=== PATIENT | female | born 1950 | race Caucasian/White ===

== ENCOUNTER 2019-08-24 08:56 | Outpatient (CLI) | payer MEDICARE ==
--- NOTE | 2019-08-24 10:34 | RAD ---
XR Lumbar Spine Bending Min 4V History: Pain. M [age] Comparison: MRI same day Findings: No acute fracture or malalignment. Advanced degenerative disc space height loss at L3/L4 an d L4/L5. Mild narrowing at the L5/S1. 1-2 mm L1 over L2 and L2 over L3 retrolisthesis due to posterior degenerative disc space height loss. No significant translation with flexion or extension. Impression: No significant translation with flexion or extension.
--- NOTE | 2019-08-24 10:39 | RAD ---
XR Cervical Spine 4 View Min History: M [age] radiculopathy Comparison: None. Findings: Bones are demineralized. Advanced degenerative disc space disease C4/C5, C5/C6, and C6/C7. With flexion there is 4 mm C3 over C4 anterolisthesis which is not present in the neutral position and normalizes with extension. There is apparent fusion of the spinous processes C6 and C7. Impression: Abnormal translation at C3/C4.
--- NOTE | 2019-08-24 12:03 | MRI ---
MRI LUMBAR SPINE WITHOUT CONTRAST: Date: 08/24/19 INDICATION: Low back pain. No comparison. FINDINGS: The lumbar vertebra maintain height and alignment. Degenerative disc changes are seen throughout, mos t prominent at L3-4 and L4-5 levels. Degenerative disc and end plate changes at these levels are note d and there is loss of disc space. At T12-L1, there is a mild disc bulge. No central canal or foraminal stenosis. At L1-2, there is an annular fissure with a small focal protrusion centrally which flattens the anter ior thecal sac. There is mild facet hypertrophy. Mild central canal stenosis. At L2-3, broad based disc bulge. Small fissure to the left with slightly asymmetric bulge to the left with mild left foraminal encroachment. Facet hypertrophy. Mild central canal stenosis. No significan t foraminal stenosis. At L3-4, broad based disc bulge with small asymmetric protrusion paracentrally to the left flattening the anterior thecal sac. Facet and ligamentous hypertrophy. Mild central canal stenosis. Mild bilate ral foraminal narrowing. At L4-5, broad based disc bulge flattens the anterior thecal sac. Mild facet hypertrophy. No signific ant central canal or foraminal stenosis. At L5-S1, mild asymmetric disc bulge to the right with right foraminal encroachment. Disc osteophyte impinges on and mildly displaces the exiting right L5 nerve root. No central canal stenosis. IMPRESSION: Multilevel degenerative disc changes with posterior disc bulges and small protrusions as noted above. See description at each level. POS: [facility]
== END 2019-08-24 08:57 | disposition home or self-care (01) ==
LOC: TBSIIMAG 08:56
PROVIDERS: ATTEND Nurse Practitioner Family
DX: M54.12 Radiculopathy, cervical region (principal); M54.5 Low back pain; M47.816 Spondylosis without myelopathy or radiculopathy, lumbar region; M51.26 Other intervertebral disc displacement, lumbar region; M51.27 Other intervertebral disc displacement, lumbosacral region
CPT/HCPCS: 72050; 72120; 72148

== ENCOUNTER 2023-06-20 19:00 | Outpatient (CLI) | payer MEDICARE | END 2023-06-20 19:01 | disposition home or self-care (01) | LOC: SLEEPLAB 19:00 | PROVIDERS: ATTEND Internal Medicine Critical Care Medicine | DX: G47.33 Obstructive sleep apnea (adult) (pediatric) (principal); G47.61 Periodic limb movement disorder; F32.A Depression, unspecified; F41.9 Anxiety disorder, unspecified; I10 Essential (primary) hypertension | CPT/HCPCS: 95811 ==

== ENCOUNTER 2024-04-18 14:36 | Outpatient (CLI) | payer MEDICARE | END 2024-04-18 14:37 | disposition home or self-care (01) | LOC: SCSRAD 14:36 | PROVIDERS: ATTEND Physician Assistant | DX: M25.551 Pain in right hip (principal); M16.11 Unilateral primary osteoarthritis, right hip ==

== ENCOUNTER 2024-09-06 13:00 | Outpatient (CLI) | payer MEDICARE | END 2024-09-06 13:01 | disposition home or self-care (01) | LOC: SCSRAD 13:00 | DX: M25.511 Pain in right shoulder (principal); M25.512 Pain in left shoulder; M19.012 Primary osteoarthritis, left shoulder ==